=== PATIENT | male | born 1980 | race Caucasian/White ===

== ENCOUNTER 2023-05-10 13:24 | Emergency (ER) | payer OTHER ==
[~2023-05-10] VITALS: Ht 177.8 cm; Wt 101.0 kg
[2023-05-10 13:40] VITALS: TEMP 97.3
[2023-05-10 14:16] LABS: BASOPHILS # (AUTO) 0.1 X10'3 (0-0.2); BASOPHILS % (AUTO) 0.5 % (0-1); EOSINOPHILS # (AUTO) 0.4 X10'3 (0-0.9); EOSINOPHILS % (AUTO) 3.7 % (0-6); HEMATOCRIT 46.2 % (42.0-52.0); HEMOGLOBIN 16.1 g/dl (14.0-17.9); LYMPHOCYTES # (AUTO) 2.4 X10'3 (1.1-4.8); MEAN CORPUSCULAR HEMOGLOBIN 31.8 PG (27.0-31.0); MEAN CORPUSCULAR HGB CONC 34.9 g/dL (33.0-36.5); MEAN PLATELET VOLUME 8.8 FL (7.4-10.4); MONOCYTES % (AUTO) 9.4 % (2-12); NEUTROPHILS # (AUTO) 6.5 X10'3 (1.8-7.7); NEUTROPHILS % (AUTO) 63.4 % (42-75); PLATELET COUNT 213 X10'3 (140-440); RED BLOOD COUNT 5.08 X10'6 (4.70-6.10); RED CELL DISTRIBUTION WIDTH 13.7 % (11.5-14.5); WHITE BLOOD COUNT 10.3 X10'3 (4.5-11.0)
[2023-05-10] MEDS ORDERED: iohexol 300mg/ml 100ml inj. ONE (14:17)
[2023-05-10 14:30] LABS: ANION GAP 14 (8-16); BLOOD UREA NITROGEN 10 MG/DL (7-18); BUN/CREATININE RATIO 11.4 (10.0-20.0); CHLORIDE 97 MMOL/L (99-107); CREATININE 0.88 MG/DL (0.60-1.10); GLUCOSE 134 MG/DL (70-104); POTASSIUM 3.6 MMOL/L (3.5-5.1); SODIUM 136 MMOL/L (135-145); eCRCL 121 ML/MIN; eGFR > 90 ML/MIN
[2023-05-10] MEDS ORDERED: iohexol 350MG/ML 100ml bottle IV ONE (15:50)
[2023-05-10] MEDS ORDERED: hydrALAZINE 20mg/ml inj. IV ONE (15:55)
[2023-05-10 16:31] LABS: BASOPHILS % (AUTO) 0.4 % (0-1); EOSINOPHILS # (AUTO) 0.4 X10'3 (0-0.9); EOSINOPHILS % (AUTO) 3.2 % (0-6); HEMATOCRIT 45.9 % (42.0-52.0); HEMOGLOBIN 15.8 g/dl (14.0-17.9); LYMPHOCYTES # (AUTO) 2.3 X10'3 (1.1-4.8); LYMPHOCYTES % (AUTO) 20.9 % (21-51); MEAN CORPUSCULAR HEMOGLOBIN 31.6 PG (27.0-31.0); MEAN CORPUSCULAR HGB CONC 34.4 g/dL (33.0-36.5); MEAN CORPUSCULAR VOLUME 91.9 FL (78-98); MEAN PLATELET VOLUME 8.8 FL (7.4-10.4); NEUTROPHILS # (AUTO) 7.5 X10'3 (1.8-7.7); NEUTROPHILS % (AUTO) 66.5 % (42-75); PLATELET COUNT 222 X10'3 (140-440); RED CELL DISTRIBUTION WIDTH 13.8 % (11.5-14.5); WHITE BLOOD COUNT 11.2 X10'3 (4.5-11.0)
[2023-05-10] MEDS ORDERED: heparin 25,000 UNIT/250ml bag 250 ML IV PRN (16:40)
[2023-05-10 16:44] LABS: APTT 28 SECONDS (22-32); PROTHROMBIN TIME 10.4 SECONDS (9.0-12.0)
[2023-05-10] MEDS: aspirin 81mg tab.chew PO ONE (17:03)
[2023-05-10] MEDS: clopidogrel 300mg tablet PO ONE (17:10)
[2023-05-10] MEDS: labetalol 20mg/4ml (5mg/ml) syringe IV ONE (17:16)
[2023-05-10] MEDS ORDERED: prozac (17:25)
[2023-05-10] MEDS ORDERED: AMLO5TAB PO (17:25)
[2023-05-10] MEDS ORDERED: DEXT5TAB26 PO (17:28)
[2023-05-10] MEDS ORDERED: ESOM20CA PO (17:28)
[2023-05-10 17:35] VITALS: BP 154/112; PULSE 90; RESP 14; O2SAT 97
== END 2023-05-10 17:44 | disposition hospice, inpatient (51) ==
LOC: ER 13:25
DX: H54.61 Unqualified visual loss, right eye, normal vision left eye (principal); I10 Essential (primary) hypertension; Z51.5 Encounter for palliative care; Z79.899 Other long term (current) drug therapy
CPT/HCPCS: 36415; 70470; 70481; 70496; 70498; 71045; 80048; 85025; 85610; 85651; 85730; 86885; 86900; 86901; 93005; 96374; 99291; J3490; Q9967

== ENCOUNTER 2023-10-28 15:44 | Emergency (ER) | payer OTHER ==
[~2023-10-28 15:44] MED LIST: AMLO5TAB PO; DEXT5TAB26 PO; ESOM20CA PO; prozac
[2023-10-28 16:06] LABS: BASOPHILS % (AUTO) 0.2 % (0-1); EOSINOPHILS % (AUTO) 0.4 % (0-6); HEMATOCRIT 44.8 % (42.0-52.0); HEMOGLOBIN 15.4 g/dl (14.0-17.9); LYMPHOCYTES % (AUTO) 20.8 % (21-51); MEAN CORPUSCULAR HGB CONC 34.4 g/dL (33.0-36.5); MEAN CORPUSCULAR VOLUME 90.2 FL (78-98); MEAN PLATELET VOLUME 8.4 FL (7.4-10.4); MONOCYTES # (AUTO) 0.8 X10'3 (0-0.9); NEUTROPHILS # (AUTO) 6.9 X10'3 (1.8-7.7); NEUTROPHILS % (AUTO) 70.6 % (42-75); PLATELET COUNT 283 X10'3 (140-440); RED BLOOD COUNT 4.96 X10'6 (4.70-6.10); RED CELL DISTRIBUTION WIDTH 15.2 % (11.5-14.5); WHITE BLOOD COUNT 9.8 X10'3 (4.5-11.0)
[2023-10-28 16:30] LABS: ALANINE AMINOTRANSFERASE 39 U/L (12-78); ALBUMIN 4.6 G/DL (3.4-5.0); ALBUMIN/GLOBULIN RATIO 1.2 (1.1-1.5); ALKALINE PHOSPHATASE 82 IU/L (46-116); ANION GAP 17 (8-16); ASPARTATE AMINO TRANSFERASE 23 U/L (10-37); BILIRUBIN,TOTAL 1.2 MG/DL (0.1-1.0); BLOOD UREA NITROGEN 10 MG/DL (7-18); BUN/CREATININE RATIO 9.9 (10.0-20.0); CALCIUM 9.3 MG/DL (8.5-10.1); CHLORIDE 99 MMOL/L (99-107); CREATININE 1.01 MG/DL (0.60-1.10); ETHANOL 25 MG/DL (<10); GLUCOSE 133 MG/DL (70-104); POTASSIUM 4.2 MMOL/L (3.5-5.1); PRO BRAIN NATRIURETIC PEPTIDE 73 PG/ML (0-125); SODIUM 139 MMOL/L (135-145); TOTAL CARBON DIOXIDE 23.5 MMOL/L (24-32); TOTAL PROTEIN 8.5 G/DL (6.4-8.2); eGFR 81 ML/MIN
[2023-10-28] MEDS: thiamine 100mg/ml 2ml inj. IV ONE (17:19)
[2023-10-28] MEDS: LORazepam 2 mg/ml vial IV ONE ×2 (17:19→19:18)
[2023-10-28] MEDS: normal saline 1000ml 1,000 ML IV ONE ×2 (17:28→18:13)
[2023-10-28 18:14] LABS: MAGNESIUM 1.9 MG/DL (1.5-2.4)
[2023-10-28] MEDS: thiamine 100mg tablet PO ONE (19:18)
[2023-10-28] MEDS: folic acid 1mg tablet PO ONE (19:18)
[2023-10-28] MEDS ORDERED: CHLO25CA10 PO (19:20)
[2023-10-28] MEDS ORDERED: NALT50TA5 PO (19:20)
[2023-10-28 19:33] VITALS: BP 153/107; PULSE 84; RESP 19; TEMP 98; O2SAT 99
== END 2023-10-28 19:40 | disposition admitted as inpatient to this hospital (09) ==
LOC: ER 15:45
DX: F10.239 Alcohol dependence with withdrawal, unspecified (principal); I10 Essential (primary) hypertension; Z79.899 Other long term (current) drug therapy; Y90.1 Blood alcohol level of 20-39 mg/100 ml
CPT/HCPCS: 36415; 80053; 80320; 83735; 83880; 84484; 85025; 93005; 96361; 96374; 96375; 96376; 99284; J2060; J3411; J7030